=== PATIENT | male | born 1960 | race African-American/Black ===

== ENCOUNTER 2021-02-25 17:43 | Emergency (ER) | payer BC, OTHER ==
[~2021-02-25] VITALS: Ht 195.6 cm; Wt 117.9 kg
[2021-02-25 18:45] LABS: ABSOLUTE NEUTROPHILS 2.7 thou/uL (1.4-8.2); BASOPHILS 0.5 % (0.0-2.0); HEMATOCRIT 47.7 % (42.0-52.0); HEMOGLOBIN 15.5 gm/dL (14.0-18.0); LYMPHOCYTES 20.5 % (24.0-44.0); MCH 23.9 pg (26.0-34.0); MCHC 32.4 g/dL (28.0-37.0); MCV 73.7 fL (80.0-100.0); MONOCYTES 10.5 % (1.0-8.0); PLATELET COUNT 140 thou/uL (150-400); POLYS 68.5 % (36.0-66.0); RBC 6.48 mil/uL (4.50-6.00); RDW 15.5 % (10.5-14.5)
[2021-02-25 19:21] LABS: CALCIUM 8.7 mg/dL (8.5-10.1); CREATININE 1.4 mg/dL (0.7-1.3); POTASSIUM 3.9 mmol/L (3.5-5.1)
[2021-02-25 19:27] LABS: ALBUMIN 3.4 g/dL (3.4-5.0); DIRECT BILIRUBIN 0.1 mg/dL (<0.1-0.2); TOTAL BILIRUBIN 0.4 mg/dL (0.2-1.0); TOTAL PROTEIN 7.6 g/dL (6.4-8.2)
[2021-02-25] MEDS ORDERED: MOBIC15 MG PO (19:46)
[2021-02-25] MEDS ORDERED: ZOFRAN ODT4 MG PO (19:46)
[2021-02-25 19:59] VITALS: BP 115/65
== END 2021-02-25 20:00 | disposition home or self-care (01) ==
LOC: ER 17:43
PROVIDERS: Emergency Medicine
DX: U07.1 COVID-19 (principal); E11.9 Type 2 diabetes mellitus without complications; N17.9 Acute kidney failure, unspecified; E86.0 Dehydration; M79.10 Myalgia, unspecified site